=== PATIENT | male | born 1980 | race American Indian/Alaskan Native ===

== ENCOUNTER 2016-12-29 23:20 | Emergency (ER) | payer SELFPAY ==
[2016-12-29 23:37] VITALS: BP 161/72; PULSE 87; RESP 16; TEMP 99.7; O2SAT 98
--- NOTE | 2016-12-30 00:39 | ED PDOC ---
HPI: General Adult Time Seen by Provider: 12/30/16 00:00 Chief Complaint (Nursing): Dental Pain Chief Complaint (Provider): tooth pain, foot pain History Per: Patient History/Exam Limitations: no limitations Onset/Duration Of Symptoms: Days Have you had recent travel within the past 21 days to any of the following countries: [place], [place], [place] or [place]?: No Current Symptoms Are (Timing): Still Present Additional Complaint(s): 36yo male with no PMHx presents to the ED with c/o tooth pain since filling came out 1 year ago but has not seen a dentist because he has no insurance. Patient also complaining of right foot pain reporting he stepped on a piece of glass 2 months ago and presented here but states he was never seen by a provider. Denies fever, chills, v/d, abdominal pain, chest pain, SOB, or any other medical complaints. Past Medical History Reviewed: Historical Data, Nursing Documentation, Vital Signs Vital Signs: Last Vital Signs Temp 99.7 F H 12/29/16 23:31 Pulse 87 12/29/16 23:31 Resp 16 12/29/16 23:31 BP 161/72 H 12/29/16 23:31 Pulse Ox 98 12/30/16 01:49 - Medical History PMH: No Chronic Diseases - Surgical History Surgical History: No Surg Hx - Family History Family History: States: No Known Family Hx - Social History Current smoker - smoking cessation education provided: No Alcohol: None Drugs: Denies - Home Medications Home Medications: Ambulatory Orders Medication Instructions Recorded Amoxicillin 500 mg PO BID #14 tablet 12/30/16 - Allergies Allergies/Adverse Reactions: Allergies Allergy/AdvReac Type Severity Reaction Status Date / Time No Known Allergies Allergy Verified 07/29/16 20:34 Review of Systems ROS Statement: Except As Marked, All Systems Reviewed And Found Negative Constitutional: Negative for: Fever, Chills ENT: Positive for: Other (tooth pain ) Cardiovascular: Negative for: Chest Pain Respiratory: Negative for: Shortness of Breath Gastrointestinal: Negative for: Vomiting, Abdominal Pain, Diarrhea Musculoskeletal: Positive for: Foot Pain (right ) Physical Exam - Reviewed Nursing Documentation Reviewed: Yes Vital Signs Reviewed: Yes - Physical Exam Appears: Positive for: Well, No Acute Distress Head Exam: Positive for: ATRAUMATIC, NORMAL INSPECTION, NORMOCEPHALIC Skin: Positive for: Normal Color, Warm, Dry Eye Exam: Positive for: Normal appearance, EOMI, PERRL ENT: Positive for: Other (left upper tooth decay and abscess ). Negative for: Pharyngeal Erythema, Tonsillar Exudate, Tonsillar Swelling Neck: Positive for: Normal, Painless ROM, Supple Cardiovascular/Chest: Positive for: Regular Rate, Rhythm. Negative for: Murmur , Tachycardia Respiratory: Positive for: Normal Breath Sounds. Negative for: Wheezing, Respiratory Distress Gastrointestinal/Abdominal: Positive for: Normal Exam, Soft. Negative for: Tenderness Extremity: Positive for: Normal ROM, Other (unremarkable right foot, neurovascularly intact, good cap refill ). Negative for: Tenderness, Deformity , Swelling Neurologic/Psych: Positive for: Alert, Oriented. Negative for: Motor/Sensory Deficits - ECG O2 Sat by Pulse Oximetry: 98 Pulse Ox Interpretation: Normal (RA) Medical Decision Making Medical Decision Makin: Impression: tooth pain and right foot pain rule out rb Plan: XR right foot Motrin 600mg PO reassess 0122: XR right foot impression: Negative right foot. 0145: XR shows no foreign body in foot and no fracture. Patient stable for d/c. Given Rx for amoxicillin and advised motrin for pain. 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 Return to the ED with any worsening or concerning symptoms. information given on how to follow up Scribe Attestation: Documented by Yaneth Montesinos acting as a scribe for Jose Garcia MD. Provider Scribe Attestation: All medical record entries made by the Scribe were at my direction and personally dictated by me. I have reviewed the chart and agree that the record accurately reflects my personal performance of the history, physical exam, medical decision making, and the department course for this patient. I have also personally directed, reviewed, and agree with the discharge instructions and disposition. Disposition - Clinical Impression Clinical Impression: Dental injury - Patient ED Disposition Is Patient to be Admitted: No Counseled Patient/Family Regarding: Studies Performed, Diagnosis, Need For Followup, Rx Given - Disposition Referrals: [facility] [Outside] [facility] [Outside] [facility] [Outside] Disposition: Routine/Home Disposition Time: 01:45 Condition: IMPROVED Additional Instructions: follow up with DENTIST tomorrow for further treatment take motrin for pain return to the ED with any worsening or concerning symptoms. Prescriptions: Amoxicillin 500 mg PO BID #14 tablet Instructions: Amoxicillin (By mouth), Dental Abscess (ED)
--- NOTE | 2016-12-30 16:24 | RAD ---
PROCEDURE: Right Foot Radiographs. HISTORY: rule out foreign body COMPARISON: None available. FINDINGS: BONES: No acute displaced fracture. JOINTS: No dislocation. SOFT TISSUES: Unremarkable. No definite evidence of radiopaque foreign body. OTHER FINDINGS: None. IMPRESSION: No acute displaced fracture or dislocation identified. If symptoms persist, or if there is continued clinical concern, x-ray follow-up in 7-10 days should be considered.
--- NOTE | 2017-01-02 15:23 | CARD ---
APPROVED REPORT EKG Measurement Heart [id number] <Conclusion> Normal sinus rhythm with sinus arrhythmia Normal ECG
== END 2016-12-30 02:30 | disposition home or self-care (01) ==
LOC: H.ER 23:20
DX: K08.89 Other specified disorders of teeth and supporting structures (principal); M79.671 Pain in right foot